=== PATIENT | male | born 1985 | race Caucasian/White ===

== ENCOUNTER 2022-09-11 10:16 | Outpatient (CLI) | payer OTHER, SELFPAY ==
[2022-09-11 14:18] LABS: Albumin* 4.7 g/dL (3.3-5.0); Chloride* 104 mmol/L (96-114); Potassium* 4.4 mmol/L (3.6-5.1); Sodium* 139 mmol/L (135-149)
[2022-09-11 14:20] LABS: Carbon Dioxide* 26 mmol/L (20-32); Cholesterol* 192 mg/dL (90-199); Creatinine* 0.9 mg/dL (0.5-1.5); Estimated Glomerular Filt Rate 112 ml/min
[2022-09-11 14:21] LABS: Alanine Aminotransferase* 83 U/L (4-50); Alkaline Phosphatase* 86 U/L (40-150); Aspartate Amino Transferase* 46 U/L (12-35); Bilirubin Total* 0.7 mg/dL (0.1-1.5); Blood Urea Nitrogen* 16 mg/dL (5-24); Calcium* 9.2 mg/dL (8.4-10.6); Glucose* 92 mg/dL (60-115); HDL Cholesterol* 32 mg/dL (>=40); LDL Cholesterol Calculated 118 mg/dL (<100); Total Protein* 7.8 g/dL (6.0-8.3); Triglycerides* 211 mg/dL (40-149)
[2022-09-12 14:11] LABS: Sex Hormone Binding Globulin 90 nmol/L (17-56); Testosterone, Adult Male 927 ng/dL (300-1080); Testosterone, Free Calculation 97 pg/mL (47-244); Testosterone, Percentage Free 1.1 % (1.6-2.9)
== END 2022-09-11 10:17 | disposition home or self-care (01) ==
PROVIDERS: PCP Family Medicine; Visit Provider Family Medicine
DX: Z00.00 Encounter for general adult medical examination without abnormal findings (principal); R53.83 Other fatigue; E78.5 Hyperlipidemia, unspecified; I10 Essential (primary) hypertension
CPT/HCPCS: 80053; 80061; 84270; 84402; 84403; 84443

== ENCOUNTER 2022-10-15 19:45 | Outpatient (CLI) | payer OTHER, SELFPAY ==
--- NOTE | 2022-10-23 10:48 | W.PM.SLEEP ---
Sleep Study Details Details Interpreting Provider: Cain Montiel MD Date of Sleep Study: 10/15/22 Sleep Study Details: STUDY TYPE:? Home ? BMI:? 35.3 ORDERING PROVIDER:Burton Puente INDICATION:? Concerns about sleep apnea ? SLEEP SUMMARY:? 486.3 monitored minutes RESPIRATORY SUMMARY:? AHI 9.3. The entire study was done in the supine position Low oxygen 81 0.8% of study oxygen less than 90%, 0.1% of study oxygen less than 85% Snoring% 2.4 PERIODIC LIMB MOVEMENTS OF SLEEP:? Not recorded CARDIAC:? 49-90, mean 64.7 IMPRESSION:? Mild obstructive sleep apnea RECOMMENDATION: Treatment options include weight loss, airway expansion surgery CPAP AutoSet 4-17 and/or dental appliance. CPAP is favored modality
== END 2022-10-15 19:46 | disposition home or self-care (01) ==
LOC: SLEEP 19:46
PROVIDERS: PCP Family Medicine; Visit Provider Family Medicine
DX: G47.33 Obstructive sleep apnea (adult) (pediatric) (principal)
CPT/HCPCS: 95806

== ENCOUNTER 2023-01-14 11:22 | Outpatient (CLI) | payer OTHER, SELFPAY | END 2023-01-14 11:23 | disposition home or self-care (01) | LOC: FRMREF 11:23 | PROVIDERS: PCP Family Medicine; Visit Provider Family Medicine | DX: I10 Essential (primary) hypertension (principal); R53.83 Other fatigue; R79.89 Other specified abnormal findings of blood chemistry | CPT/HCPCS: 80053 ==

== ENCOUNTER 2024-02-28 13:23 | Outpatient (CLI) | payer OTHER, SELFPAY | END 2024-02-28 13:24 | disposition home or self-care (01) | PROVIDERS: PCP Family Medicine; Visit Provider Family Medicine | DX: I10 Essential (primary) hypertension (principal) | CPT/HCPCS: 80053; 82043; 82570 ==

== ENCOUNTER 2025-04-12 13:08 | Outpatient (CLI) | payer OTHER, SELFPAY | END 2025-04-12 13:09 | disposition home or self-care (01) | LOC: FRMREF 13:08 | PROVIDERS: PCP Family Medicine; Visit Provider Family Medicine | DX: E78.5 Hyperlipidemia, unspecified (principal); I10 Essential (primary) hypertension; Z11.59 Encounter for screening for other viral diseases | CPT/HCPCS: 80053; 80061; 82043; 82570; 86803 ==

== ENCOUNTER 2025-10-25 06:14 | Day surgery (SDC) | payer OTHER, SELFPAY ==
[2025-10-25 06:37] VITALS: BMI 37.4
[2025-10-25 06:39] VITALS: BP 134/92; PULSE 69; RESP 20; TEMP 36.3; O2SAT 97
[2025-10-25] MEDS: LACTATED RINGERS 1000 ML 1,000 ML 100 ML IV (06:50)
[2025-10-25] MEDS: SODIUM CHLORIDE 0.9 % (FLUSH) 10 ML SYRINGE IVF (06:52)
[2025-10-25] MEDS: BUPIVACAINE 0.5% 30 ML 20 ML INJECTION (07:58)
[2025-10-25] MEDS: LIDOCAINE 1% MDV 20 ML INJECTION (07:58)
[2025-10-25 08:15] VITALS: BP 123/74; PULSE 77; RESP 16; TEMP 36.4; O2SAT 94
--- NOTE | 2025-10-25 08:22 | P.ANES_ITS ---
Anesthesia Charges Start Date/Time Anesthesia Start Date: 10/25/25 Anesthesia Start Time: 07:35 Stop Date/Time Anesthesia Stop Date: 10/25/25 Anesthesia Stop Time: 08:20 Coding CPT Codes CPT Codes: ANESTH VASECTOMY - 86247 ([id number]) P2 - PATIENT W/MILD SYST DISEASE, QZ - MICA PARTS SPRAYER SVC W/O HEALTH INFORMATION SPECIALIST BY
--- NOTE | 2025-10-25 08:22 | W.ANESCHARGE ---
Anesthesia Charges Start Date/Time Anesthesia Start Date: 10/25/25 Anesthesia Start Time: 07:35 Stop Date/Time Anesthesia Stop Date: 10/25/25 Anesthesia Stop Time: 08:20 Coding CPT Codes CPT Codes: ANESTH VASECTOMY - 71421 ([id number]) P2 - PATIENT W/MILD SYST DISEASE, QZ - VIROLOGIST SVC W/O BUSINESS ANALYST SALES OPERATIONS BY
[2025-10-25 08:30] VITALS: BP 119/79; PULSE 73; RESP 16; O2SAT 92
--- NOTE | 2025-10-25 08:35 | W.PM.H&PU ---
History & Physical Update History & Physical Update H&P Reviewed and patient assessed: No changes noted
--- NOTE | 2025-10-25 08:35 | PM.GSPRC ---
Operative Note Date of procedure: 10/25/25 Pre-op diagnosis: Desire for permanent sterilization Post-op diagnosis: Same Type of Procedure: Vasectomy Indications: The patient is a 40-year-old male who desires permanent sterilization. After discussion of risks and benefits of vasectomy, he agreed to proceed. I recommended that due to a foreshortened scrotum, we do the procedure in the OR under sedation as this will be much more comfortable for him the vas deferens was unable to be palpated in clinic. Procedure Description: After discussing the risks and benefits of the procedure, the patient signed informed consent.? The patient was brought to the operating room and placed on the operating table in supine position.? Care was taken to pad the patient's pressure points.?? The patient was then given sedation by anesthesia.?? The operative site was then prepped and draped in the usual sterile fashion.? A time-out was then performed. I began on the right side. The spermatic cord was grasped and the vas deferens isolated. 1% lidocaine was injected into the scrotal skin and around the vas deferens. Once the skin was anesthetized, a stab incision was made overlying the vas. Blunt dissection was taken down to the vas. The vas deferens was then grasped and pulled out the incision. Careful dissection was then done to isolate a 3 cm segment of vas deferens from the surrounding blood vessels and tissue. Once this was done the vas was clipped proximally and distally and sharply transected with scissors. This was passed off for pathology. The mucosal ends were cauterized. The wound was examined for hemostasis which was adequate. The same procedure was then performed on the left, again isolating a 3 cm segment of vas deferens and sending for pathology. Bacitracin and Gauze dressings were then applied. ? The patient was then woken and transported to the recovery area in stable condition. ? The patient tolerated the procedure well. Findings: None Anesthesia: MAC Surgeon: Joan Sepulveda MD Estimated blood loss (mL): 1 Additional Specimen Information: 1. Right vas deferens 2. Left vas deferens Condition: stable Disposition: same day
[2025-10-25 08:45] VITALS: BP 110/79; PULSE 60; RESP 16; TEMP 36.4; O2SAT 96
[2025-10-25 09:01] VITALS: BP 117/82; PULSE 65; RESP 16; O2SAT 95
[2025-10-25 09:15] VITALS: BP 116/78; PULSE 66; RESP 16; O2SAT 95
== END 2025-10-25 09:40 | disposition home or self-care (01) ==
PROVIDERS: PCP Family Medicine; Visit Provider Surgery
PROC: (CPT 55250; principal; 2025-10-25 07:30)
DX: Z30.2 Encounter for sterilization (principal)
CPT/HCPCS: 55250; 00921; J2003; J0665; J2250; J2704; J3010; J7120